=== PATIENT | male | born 1980 | race American Indian/Alaskan Native ===

== ENCOUNTER 2019-08-07 19:32 | Emergency (ER) | payer BC ==
--- NOTE | 2019-08-07 20:28 | Emergency Department Report ---
- General Chief complaint: Skin Rash Stated complaint: RASH ON BACK Time Seen by Provider: 08/07/19 20:23 Source: patient Mode of arrival: Ambulatory Limitations: No Limitations - History of Present Illness Initial comments: pt is a 38 yo male who presents with a rash to his upper back that began today. states it itches and ying. no known allergies. no new soaps, detergents, foods, lotions, denies anything new. denies getting it after being outside. denies being around any plants. pmhx asthma. no allergies to meds. denies every having in the past. - Related Data Previous Rx's Medication Instructions Recorded Last Taken Type Hydrocortisone [Hydrocortisone 1 applic TP BID #1 oint...g. 08/07/19 Unknown Rx 2.5% OINT] Allergies Allergy/AdvReac Type Severity Reaction Status Date / Time No Known Allergies Allergy Unverified 08/07/19 19:53 Abscess Boil HPI - HPI Chief Complaint: Skin Rash Stated Complaint: RASH ON BACK Time Seen by Provider: 08/07/19 20:23 Home Medications: Previous Rx's Medication Instructions Recorded Last Taken Type Hydrocortisone [Hydrocortisone 1 applic TP BID #1 oint...g. 08/07/19 Unknown Rx 2.5% OINT] Allergies/Adverse Reactions: Allergies Allergy/AdvReac Type Severity Reaction Status Date / Time No Known Allergies Allergy Unverified 08/07/19 19:53 ED Review of Systems ROS: Stated complaint: RASH ON BACK Other details as noted in HPI Comment: All other systems reviewed and negative ED Past Medical Hx - Medications Home Medications: Home Medications Medication Instructions Recorded Confirmed Last Taken Type Hydrocortisone [Hydrocortisone 1 applic TP BID #1 oint...g. 08/07/19 Unknown Rx 2.5% OINT] ED Physical Exam - General Limitations: No Limitations General appearance: alert, in no apparent distress - Head Head exam: Present: atraumatic, normocephalic - Eye Eye exam: Present: normal appearance - ENT ENT exam: Present: mucous membranes moist - Neurological Exam Neurological exam: Present: alert, oriented X3 - Psychiatric Psychiatric exam: Present: normal affect, normal mood - Skin Skin exam: Present: warm, dry, other (small erythematous papules across the back, no blisters, no drainage) ED Course Vital Signs 08/07/19 20:25 Temperature 98 F Pulse Rate 80 Respiratory 18 Rate Blood Pressure 148/78 O2 Sat by Pulse 100 Oximetry ED Medical Decision Making - Medical Decision Making pt is a 38 yo male who presents with a rash to his upper back that began today. states it itches and ying. no known allergies. no new soaps, detergents, foods, lotions, denies anything new. denies getting it after being outside. denies being around any plants. pmhx asthma. no allergies to meds. denies every having in the past. VSS. on exam: small erythematous papules across the back, no blisters, no drainage. crosses midline, does not appear to be shingles. pt given hydrocortisone cream. advised pt to please use medication as prescribed. please also use calamine lotion and benadryl over the counter to help with itching. follow up with a primary care doctor in the next 3 days for reevaluation of the rash. return to the emergency room for any new or worsening symptoms. Critical care attestation.: If time is entered above; I have spent that time in minutes in the direct care of this critically ill patient, excluding procedure time. ED Disposition Clinical Impression: Rash Disposition: DC-01 TO HOME OR SELFCARE Is pt being admited?: No Does the pt Need Aspirin: No Condition: Stable Instructions: Acute Rash (ED) Additional Instructions: please use medication as prescribed. please also use calamine lotion and benadryl over the counter to help with itching. follow up with a primary care doctor in the next 3 days for reevaluation of the rash. return to the emergency room for any new or worsening symptoms. Prescriptions: Hydrocortisone [Hydrocortisone 2.5% OINT] 1 applic TP BID #1 oint...g. Referrals: [facility] [Provider Group] - 2-3 Days Forms: Work/School Release Form(ED) Time of Disposition: 20:26 Print Language: K[place]I
[2019-08-07 20:29] VITALS: BP 148/78
== END 2019-08-07 21:00 | disposition home or self-care (01) ==
LOC: ED 19:32
DX: R21 Rash and other nonspecific skin eruption (principal); J45.909 Unspecified asthma, uncomplicated

== ENCOUNTER 2021-10-22 14:56 | Emergency (ER) | payer SELFPAY ==
[2021-10-22 15:29] VITALS: BP 141/78
[2021-10-22] MEDS ORDERED: IPRATROPIUM/ALBUTEROL SULFATE 3 ML AMPUL.NEB IH ONE (15:39)
[2021-10-22] MEDS ORDERED: predniSONE 20 MG TAB PO ONE (15:39)
--- NOTE | 2021-10-22 15:54 | Emergency Department Report ---
ED General Adult HPI - General Chief complaint: Dyspnea/Respdistress Stated complaint: BODY PAIN Time Seen by Provider: 10/22/21 15:32 Source: patient Mode of arrival: Ambulatory Limitations: No Limitations - History of Present Illness Initial comments: This is a 40-year-old male with past medical history of asthma who presents the emergency department chief complaint of cough, congestion, sore throat, generalized myalgias, malaise over the past 3 days. He denies any sick contacts. He does report he has been wheezing. He does report a subjective fever and chills. - Related Data Previous Rx's Medication Instructions Recorded Last Taken Type Hydrocortisone [Hydrocortisone 1 applic TP BID #1 oint...g. 08/07/19 Unknown Rx 2.5% OINT] Albuterol Sulfate [Proventil Hfa] 6.7 gm IH Q4HR #1 hfa.aer.ad 10/22/21 Unknown Rx Azithromycin [Zithromax Z-RICK] 0 mg PO DAILY #1 pack 10/22/21 Unknown Rx predniSONE [Deltasone] 50 mg PO QDAY #5 tab 10/22/21 Unknown Rx Allergies Allergy/AdvReac Type Severity Reaction Status Date / Time No Known Allergies Allergy Unverified 08/07/19 19:53 ED Review of Systems ROS: Stated complaint: BODY PAIN Other details as noted in HPI Comment: All other systems reviewed and negative Constitutional: see HPI, chills, fever, malaise Eyes: denies: eye pain, eye discharge, vision change ENT: as per HPI, throat pain, congestion. denies: ear pain Respiratory: cough. denies: shortness of breath, wheezing Cardiovascular: denies: chest pain, palpitations Endocrine: no symptoms reported Gastrointestinal: denies: abdominal pain, nausea, diarrhea Genitourinary: denies: urgency, dysuria Musculoskeletal: as per HPI, myalgia. denies: back pain, joint swelling, arthralgia Skin: denies: rash, lesions Neurological: denies: headache, weakness, paresthesias Psychiatric: denies: anxiety, depression Hematological/Lymphatic: denies: easy bleeding, easy bruising ED Past Medical Hx - Past Medical History Previous Medical History?: Yes Hx Asthma: Yes - Surgical History Past Surgical History?: Yes Additional Surgical History: RIGHT ANKLE - Social History Smoking Status: Never Smoker Substance Use Type: None - Medications Home Medications: Home Medications Medication Instructions Recorded Confirmed Last Taken Type Hydrocortisone [Hydrocortisone 1 applic TP BID #1 oint...g. 08/07/19 Unknown Rx 2.5% OINT] Albuterol Sulfate [Proventil Hfa] 6.7 gm IH Q4HR #1 hfa.aer.ad 10/22/21 Unknown Rx Azithromycin [Zithromax Z-RICK] 0 mg PO DAILY #1 pack 10/22/21 Unknown Rx predniSONE [Deltasone] 50 mg PO QDAY #5 tab 10/22/21 Unknown Rx ED Physical Exam - General Limitations: No Limitations General appearance: alert, in no apparent distress - Head Head exam: Present: atraumatic, normocephalic - Eye Eye exam: Present: normal appearance, PERRL, EOMI Pupils: Present: normal accommodation - ENT ENT exam: Present: normal orophraynx, mucous membranes moist, TM's normal bilaterally. Absent: normal exam (Mild erythema the posterior pharynx, no peritonsillar bulging, retropharyngeal bulging or tongue elevation. No drooling or dysphonia.) - Neck Neck exam: Present: normal inspection, full ROM. Absent: tenderness, meningismus - Respiratory Respiratory exam: Present: normal lung sounds bilaterally, chest wall tenderness. Absent: respiratory distress, wheezes, rales, rhonchi, stridor - Cardiovascular Cardiovascular Exam: Present: regular rate, normal rhythm, normal heart sounds. Absent: systolic murmur, diastolic murmur, rubs, gallop - GI/Abdominal GI/Abdominal exam: Present: soft, normal bowel sounds. Absent: distended, tenderness, guarding, rebound, rigid - Rectal Rectal exam: Present: deferred - Extremities Exam Extremities exam: Present: normal inspection, full ROM. Absent: tenderness, normal capillary refill, calf tenderness (No posterior calf tenderness, negative Homans' sign bilaterally) - Back Exam Back exam: Present: normal inspection, full ROM. Absent: tenderness, CVA tenderness (R), CVA tenderness (L) - Neurological Exam Neurological exam: Present: alert, oriented X3, normal gait - Psychiatric Psychiatric exam: Present: normal affect, normal mood - Skin Skin exam: Present: warm, dry, intact, normal color. Absent: rash ED Course Vital Signs 10/22/21 10/22/21 15:26 16:10 Temperature 98.3 F Pulse Rate 84 Pulse Rate [ 85 Anterior Bilateral Throughout] Respiratory 17 Rate Respiratory 20 Rate [Anterior Bilateral Throughout] Blood Pressure 141/78 O2 Sat by Pulse 98 Oximetry ED Medical Decision Making - Radiology Data Radiology results: report reviewed, image reviewed Ordering Physician: YISEL ARCHULETA Date of Service: 10/22/21 Procedure(s): XR chest routine 2V Accession Number(s): [id number] cc: YISEL ARCHULETA Fluoro Time In Minutes: XR chest routine 2V INDICATION / CLINICAL INFORMATION: cough, fever. COMPARISON: None available. FINDINGS: SUPPORT DEVICES: None. HEART /PULMONARY VASCULATURE: No significant abnormality. LUNGS / PLEURA: There are mild increased reticulonodular opacities within the right lung base, not further localized on lateral view. Left lung is clear. No sizable pleural effusion. No pneumothorax. ADDITIONAL FINDINGS: No significant additional findings. IMPRESSION: Asymmetric reticulonodular opacities within the right lung base, may represent atypical pneumonia. Signer Name: Taisha Medina MD Signed: 10/22/2021 4:23 PM Workstation Name: [id number] Transcribed By: CISCO Dictated By: TAISHA MEDINA MD Electronically Authenticated By: TAISHA MEDINA MD Signed Date/Time: 10/22/21 1623 - Medical Decision Making Patient is nontoxic no acute distress. No increased work of breathing. He felt much better after oral steroids and breathing treatment in the ER. X-ray showed possible atypical pneumonia. Educated the patient about this and the possibility of COVID-19 recommended self quarantining to get tested as an outpatient. We will treat the patient with steroids, antibiotics for atypical infection, inhalers and recommended outpatient follow-up with primary care doctor. Return to the ER with any change or worsening symptoms. Patient is a low risk by Wells criteria, no pleuritic pain, tachycardia, hypoxia and technically is PERC negative. He verbalized understand the diagnosis, treatment plan and follow-up structures all his questions were answered. - Differential Diagnosis Bronchitis, asthma exacerbation, COVID-19, pneumonia Critical care attestation.: If time is entered above; I have spent that time in minutes in the direct care of this critically ill patient, excluding procedure time. ED Disposition Clinical Impression: Asthmatic bronchitis Qualifiers: Asthma severity: mild Asthma persistence: intermittent Asthma complication type: with acute exacerbation Qualified Code(s): J45.21 - Mild intermittent asthma with (acute) exacerbation Disposition: 01 HOME / SELF CARE / HOMELESS Is pt being admited?: No Condition: Stable Instructions: Chronic Bronchitis (ED), Asthma, Adult Prescriptions: predniSONE [Deltasone] 50 mg PO QDAY #5 tab Albuterol Sulfate [Proventil Hfa] 6.7 gm IH Q4HR #1 hfa.aer.ad Azithromycin [Zithromax Z-RICK] 0 mg PO DAILY #1 pack Referrals: [facility] [Provider Group] - 3-5 Days Forms: Work/School Release Form(ED) Time of Disposition: 16:54
--- NOTE | 2021-10-22 16:28 | XRay Report ---
XR chest routine 2V INDICATION / CLINICAL INFORMATION: cough, fever. COMPARISON: None available. FINDINGS: SUPPORT DEVICES: None. HEART /PULMONARY VASCULATURE: No significant abnormality. LUNGS / PLEURA: There are mild increased reticulonodular opacities within the right lung base, not fu rther localized on lateral view. Left lung is clear. No sizable pleural effusion. No pneumothorax. ADDITIONAL FINDINGS: No significant additional findings. IMPRESSION: Asymmetric reticulonodular opacities within the right lung base, may represent atypical pneumonia. Signer Name: Gilmer Sanders MD Signed: 10/22/2021 4:23 PM Workstation Name: [id number]
== END 2021-10-22 17:19 | disposition home or self-care (01) ==
LOC: ED 14:56
DX: J45.909 Unspecified asthma, uncomplicated (principal); Z79.899 Other long term (current) drug therapy
CPT/HCPCS: 71046; 94640; 99283; J7512; 94644